=== PATIENT | male | born 1990 | race American Indian/Alaskan Native ===

== ENCOUNTER 2020-10-20 13:49 | Emergency (ER) | payer SELFPAY ==
[2020-10-20] MEDS ORDERED: ONDANSETRON 4 MG/2 ML INJ IV ONE (15:01)
[2020-10-20] MEDS ORDERED: SODIUM CHLORIDE 0.9% 1000 ML 1,000 ML IV ONE (15:01)
--- NOTE | 2020-10-20 15:04 | Event Note ---
ED Screening Note Date of service: 10/20/20 Time: 15:03 ED Screening Note: 30-year-old male was brought to the ER via EMS with complaints of nausea and vomiting since this morning. He reports associated abdominal pain. Patient admits that he was drinking alcohol last night. He states that he does not drink every day, but he drank a lot last night. This initial assessment/diagnostic orders/clinical plan/treatment(s) is/are subject to change based on patients health status, clinical progression and re- assessment by fellow clinical providers in the ED. Further treatment and workup at subsequent clinical providers discretion. Patient/guardian urged not to elope from the ED as their condition may be serious if not clinically assessed and managed. Initial orders include: CBC, CMP, EKG, troponin, lipase and magnesium
[2020-10-20 15:21] LABS: Basophils # (Auto) 0.1 K/mm3 (0.0-0.1); Basophils % (Auto) 0.3 % (0.0-1.8); Hematocrit 43.1 % (35.5-45.6); Hemoglobin 14.2 gm/dl (11.8-15.2); Lymphocytes # (Auto) 1.3 K/mm3 (1.2-5.4); Lymphocytes % (Auto) 7.7 % (13.4-35.0); Mean Corpuscular HGB Conc 33 % (32-34); Mean Corpuscular Volume 94 fl (84-94); Monocytes # (Auto) 1.6 K/mm3 (0.0-0.8); Monocytes % (Auto) 9.3 % (0.0-7.3); Platelet Count 238 K/mm3 (140-440); Red Blood Count 4.58 M/mm3 (3.65-5.03); Red Cell Distribution Width 14.2 % (13.2-15.2)
[2020-10-20 15:43] LABS: Alanine Aminotransferase 23 units/L (7-56); Albumin 4.8 g/dL (3.9-5); BUN/Creatinine Ratio 14; Blood Urea Nitrogen 17 mg/dL (9-20); Calcium 9.9 mg/dL (8.4-10.2); Hemolysis Index 16
--- NOTE | 2020-10-20 16:11 | XRay Report ---
XR abd series w cxr 1VCHEST 1 VIEW, XR ABDOMEN 1 VIEW INDICATION / CLINICAL INFORMATION: abd pain. COMPARISON: None available. FINDINGS: SUPPORT DEVICES: None. HEART / MEDIASTINUM: No significant abnormality. LUNGS / PLEURA: Lungs are clear. Costophrenic sulci are sharp. No pneumothorax. ABDOMEN: Nonobstructive bowel gas pattern. No pneumoperitoneum. ADDITIONAL FINDINGS: No significant additional findings. IMPRESSION: 1. No acute findings. 2. Nonobstructive bowel gas pattern. Signer Name: Jay Wharton MD Signed: 10/20/2020 4:07 PM Workstation Name: [id number]
--- NOTE | 2020-10-20 17:38 | Cat Scan Report ---
CT ABDOMEN AND PELVIS WITH CONTRAST HISTORY: Abdominal pain and vomiting COMPARISON: None TECHNIQUE: Routine abdominal and pelvic CT exam performed following intravenous contrast administrat ion.. All CT scans at this location are performed using CT dose reduction for ALARA by means of autom ated exposure control. FINDINGS: CT ABDOMEN: Lung Bases: No significant abnormality. Liver: No significant abnormality. Biliary: No significant abnormality. Spleen: No significant abnormality. Unenlarged. Pancreas: No significant abnormality. Adrenals: No significant abnormality. Kidneys: There is a developmental horseshoe kidney without hydronephrosis or mass. Lymphatics: No lymphadenopathy. Vasculature: No significant abnormality. Bowel/Peritoneum: No significant abnormality. No free air. No free fluid. Normal appendix. CT PELVIC: : No significant abnormality. Lymphatics: No lymphadenopathy. Osseous Structures: No aggressive appearing osseous lesions. Additional Findings: None IMPRESSION: 1. No acute findings. 2. Incidental developmental horseshoe kidney noted. Signer Name: Eugene Thomas MD Signed: 10/20/2020 5:34 PM Workstation Name: [id number]
[2020-10-20] MEDS ORDERED: SODIUM CHLORIDE 0.9% 1000 ML IV SOLN IV ONE (17:46)
[2020-10-20] MEDS ORDERED: CEFEPIME/NS 1 GM/100 ML 1 GM/100 ML BAG IV ONE (17:47)
--- NOTE | 2020-10-20 17:58 | Emergency Department Report ---
ED Abdominal Pain HPI - General Chief Complaint: Abdominal Pain Stated Complaint: NAUSEA/VOMITING Time Seen by Provider: 10/20/20 15:01 Source: patient Mode of arrival: Ambulatory Limitations: No Limitations - History of Present Illness Initial Comments: 30-year-old male presents to ED with complaint of abdominal pain and vomiting. Patient reports onset of symptoms this morning. Patient states pain is located in the upper abdominal area. He denies any fever or diarrhea. He denies any cough, shortness of breath, loss of smell or taste. When asked about alcohol intake, patient states he drank heavily last night. When I asked him to quantify how much he drank, patient states "1 cup." Patient states that is a lot for him because he does not usually drink alcohol. Patient denies any bloody emesis or stool. Patient hypotensive in triage with systolic BP in the 70s. MD Complaint: abdominal pain -: This morning Location: LUQ, RUQ, epigastric Radiation: none Migration to: no migration Severity: moderate Quality: cramping Consistency: constant Improves With: nothing Worsens With: nothing Context: possible food poisoning Associated Symptoms: nausea, vomiting. denies: diarrhea, fever, hematemesis, hematochezia, melena - Related Data Previous Rx's Medication Instructions Recorded Last Taken Type Ondansetron [Zofran Odt] 4 mg PO Q6H #14 tab.rapdis 10/20/20 Unknown Rx Pantoprazole Sodium [Protonix] 40 mg PO QDAY #30 granpkt. 10/20/20 Unknown Rx Allergies Allergy/AdvReac Type Severity Reaction Status Date / Time No Known Allergies Allergy Unverified 10/20/20 13:52 ED Review of Systems ROS: Stated complaint: NAUSEA/VOMITING Other details as noted in HPI Comment: All other systems reviewed and negative Constitutional: denies: chills, fever Respiratory: denies: cough, shortness of breath Gastrointestinal: abdominal pain, nausea, vomiting. denies: diarrhea ED Past Medical Hx - Past Medical History Previous Medical History?: No - Surgical History Past Surgical History?: No - Social History Smoking Status: Current Every Day Smoker - Medications Home Medications: Home Medications Medication Instructions Recorded Confirmed Last Taken Type Ondansetron [Zofran Odt] 4 mg PO Q6H #14 tab.rapdis 10/20/20 Unknown Rx Pantoprazole Sodium [Protonix] 40 mg PO QDAY #30 granpkt. 10/20/20 Unknown Rx ED Physical Exam - General Limitations: No Limitations General appearance: alert, in no apparent distress - Head Head exam: Present: atraumatic, normocephalic - Eye Eye exam: Present: normal appearance, EOMI - ENT ENT exam: Present: mucous membranes moist - Neck Neck exam: Present: normal inspection - Respiratory Respiratory exam: Present: normal lung sounds bilaterally. Absent: respiratory distress - Cardiovascular Cardiovascular Exam: Present: regular rate, normal rhythm - GI/Abdominal GI/Abdominal exam: Present: soft, tenderness. Absent: distended - Extremities Exam Extremities exam: Present: normal inspection - Neurological Exam Neurological exam: Present: alert, oriented X3 - Psychiatric Psychiatric exam: Present: normal affect, normal mood - Skin Skin exam: Present: warm, dry, intact, normal color ED Course Vital Signs 10/20/20 10/20/20 10/20/20 14:58 16:02 16:10 Temperature 97.8 F Pulse Rate 62 63 Respiratory 20 14 Rate Blood Pressure Blood Pressure 77/36 122/86 [Right] O2 Sat by Pulse 100 100 Oximetry 10/20/20 10/20/20 10/20/20 16:16 16:30 16:46 Temperature Pulse Rate 70 64 60 Respiratory 14 14 23 Rate Blood Pressure 136/88 136/88 122/65 Blood Pressure [Right] O2 Sat by Pulse 100 97 99 Oximetry 10/20/20 10/20/20 10/20/20 17:42 17:46 18:00 Temperature Pulse Rate 68 63 Respiratory 24 23 Rate Blood Pressure 106/37 102/48 102/48 Blood Pressure [Right] O2 Sat by Pulse 100 100 100 Oximetry 10/20/20 10/20/20 10/20/20 18:16 18:30 19:01 Temperature Pulse Rate Respiratory 19 17 16 Rate Blood Pressure 105/63 105/63 Blood Pressure [Right] O2 Sat by Pulse 100 100 Oximetry - Reevaluation(s) Reevaluation #1: 10/20/20 18:49 Pt seen and evaluated by Dr Lyles. Does not feel pt requires admission at this time. ED Medical Decision Making - Lab Data Result diagrams: 10/20/20 15:08 10/20/20 15:08 - Radiology Data Radiology results: report reviewed, image reviewed - Medical Decision Making 30-year-old male presents to ED with vomiting and abdominal pain since this morning. He reports drinking alcohol on yesterday. Upon arrival, patient hypotensive. With elevated lactic acid at 6. Blood cultures drawn, cefepime given. IV fluids administered, 30 cc/kg. Repeat lactic acid improved to 4. CT abdomen pelvis is unremarkable for any acute findings. Blood pressure has im proved, patient is currently feeling much better at this time. Does have lab abnormalities, I spoke with hospitalist, Dr. Lyles regarding admission. He states he will come down to evaluate the patient. - Differential Diagnosis perforated viscus, bowel obstruction, pancreatitis Critical care attestation.: If time is entered above; I have spent that time in minutes in the direct care of this critically ill patient, excluding procedure time. ED Disposition Clinical Impression: SIRS (systemic inflammatory response syndrome), Dehydration, Gastritis, Abdominal pain, Vomiting Disposition: - TO HOME OR SELFCARE Is pt being admited?: No Condition: Stable Instructions: Gastritis, Adult, [id number], Dehydration, Adult, [id number], Nausea and Vomiting, Adult Prescriptions: Pantoprazole Sodium [Protonix] 40 mg PO QDAY #30 granpkt. Ondansetron [Zofran Odt] 4 mg PO Q6H #14 tab.rapdis Referrals: PRIMARY CARE, [Primary Care Provider] - 3-5 Days [facility] [Provider Group] - 3-5 Days Time of Disposition: 18:20
--- NOTE | 2020-10-20 18:57 | Event Note ---
Date: 10/20/20 Patient seen and examined Patient drank a bottle of liquor which he does not know, what kind it is. He assumes it is tequila Initially patient was hypotensive but no normotensive after fluids Sitting in bed comfortably Was vomiting earlier but better now Amylase and lipase are normal White count is 17,200 Lactic acid is 4.4 Examination abdomen is soft and benign no guarding or tenderness or rigidity. CT scan normal. Diagnosis Alcoholic gastritis Dehydration Hypotension which has resolved Treatment Zofran 4 mg ODT 4 times daily as needed #20 Protonix 40 mg daily 30 days #30 Patient counseled about alcoholism
[2020-10-20 19:23] LABS: Bilirubin,Urine NEG (Negative); Blood,Urine NEG (Negative); Color,Urine Straw (Yellow); Protein,Urine <15 mg/dL mg/dL (Negative); Urobilinogen,Urine < 2.0 mg/dL (<2.0); WBC,Urine < 1.0 /HPF (0.0-6.0)
[2020-10-20 20:15] VITALS: BP 105/66
== END 2020-10-20 20:00 | disposition home or self-care (01) ==
LOC: ED 13:49
DX: K29.70 Gastritis, unspecified, without bleeding (principal); E86.0 Dehydration; R11.10 Vomiting, unspecified; R65.10 Systemic inflammatory response syndrome (SIRS) of non-infectious origin without acute organ dysfunction; R10.13 Epigastric pain; F17.200 Nicotine dependence, unspecified, uncomplicated; Z79.899 Other long term (current) drug therapy
CPT/HCPCS: 36415; 74022; 74177; 80053; 81001; 82140; 83690; 83735; 84484; 85025; 87040; 87086; 96361; 96365; 96375; 99284; J0692; J2405; J7030; Q9967